=== PATIENT | male | born 1980 | race Caucasian/White ===

== ENCOUNTER 2020-06-20 13:26 | Outpatient (CLI) | payer BC, MEDICARE, MEDICAID ==
[~2020-06-20 13:26] MED LIST: ALPR-624 PO; IBUP-814 PO; NAPR-996 PO
== END 2020-06-20 23:59 | disposition home or self-care (01) ==
LOC: RAD 13:26
PROVIDERS: ATTEND Obstetrics & Gynecology
DX: R94.31 Abnormal electrocardiogram [ECG] [EKG] (principal); Z13.6 Encounter for screening for cardiovascular disorders; F11.20 Opioid dependence, uncomplicated
CPT/HCPCS: 93005